=== PATIENT | male | born 1960 | race Caucasian/White ===

== ENCOUNTER 2016-07-17 09:44 | Inpatient (IN) | payer BC ==
[2016-07-17 10:13] LABS: CHLORIDE,CL 102 mEq/L (98-106); SODIUM,NA 141 mEq/L (136-145)
[2016-07-17] MEDS ORDERED: Docusate Sodium 100 MG Cap PO PRN (11:22)
[2016-07-17] MEDS ORDERED: Magnesium Hydroxide 400 MG/5 ML Susp 30 ML Cup PO PRN (11:22)
[2016-07-17] MEDS ORDERED: Sodium Chloride 0.9% 500 ML IV ONE (11:30)
[2016-07-17] MEDS: Sodium Chloride 0.9% 1,000 ML IV SCH ×2 (12:21→16:43)
[2016-07-17] MEDS ORDERED: Iopamidol 755 Mg/ML 100 ML Bottle IVPUSH ONE (13:41)
[2016-07-17] MEDS ORDERED: cefTRIAXone 1 GM Vial IVPUSH SCH (15:00)
[2016-07-17] MEDS ORDERED: Levofloxacin/Dextrose 5%-Water 750 MG in Premix Bag 1 BAG IV SCH ×2 (16:00→17:00)
[2016-07-17] MEDS: metroNIDAZOLE/Normal Saline 500 MG in Premix Bag 1 BAG IV SCH (16:45)
[2016-07-17] MEDS: Acetaminophen 325 MG Tab PO PRN (19:11)
[2016-07-17] MEDS ORDERED: Enoxaparin 40 MG/0.4 ML Syringe SUBCUT SCH (20:00)
[2016-07-18] MEDS: metroNIDAZOLE/Normal Saline 500 MG in Premix Bag 1 BAG IV SCH ×2 (00:03→07:42)
[2016-07-18] MEDS: Acetaminophen 325 MG Tab PO PRN ×2 (03:49→11:42)
[2016-07-18] MEDS: Sodium Chloride 0.9% 1,000 ML IV SCH (03:51)
[2016-07-18] MEDS ORDERED: Lisinopril 10 MG Tab PO SCH (08:00)
[2016-07-18 12:04] VITALS: BP 144/76
--- NOTE | 2016-07-21 07:20 | DISCH ---
FINAL DIAGNOSIS: Cholecystitis. HISTORY OF PRESENT ILLNESS: Max is a 55-year-old male, who presented initially to the clinic yesterday with concerns of cold-like symptoms. He has a little bit of shortness of breath, indigestion, question whether or not he came down with pneumonia. He was having a lot of some abdominal discomfort with it as well. He was just not feeling himself. He states that he did not have any nausea, no vomiting, no diarrhea at that point in time. I felt like he had a lot of sweats as well. He was worked up in the clinic and initially he had a complete laboratory work that did show white blood count of 22,000 with a left shift. D-dimer was elevated at 2.31. Cardiac enzymes were within normal limits. ALT was mildly elevated at 129 with an alkaline phosphatase of 195. CRP was quite elevated at 49.2. CT scan of the chest, abdomen, and pelvis initially to rule out PE, which was negative per radiologist at [place]. I did feel that imaging was suboptimal, however. Abdomen and pelvis did demonstrate inflammation and concerns of cholecystitis. No signs of any stones were noted. Ultrasound of the right upper quadrant was ordered at that point in time. LABORATORY DATA: For initial laboratory work please see HPI. Repeat laboratory work today did show an improvement in white blood count down to 15,500. CRP was down to 35.7, amylase was within normal limits at 17. Urinalysis was concerning about some positive nitrites for a positive UTI. HOSPITAL COURSE: The patient was admitted to Dr. Wright's services under acute care. He was started on IV Levaquin and Flagyl yesterday. Vital signs have been stable. He did present initially with a temperature of 99.6, heart rate was a little bit of tachycardic at 124, blood pressure 125/73, respiratory rate of 20 with an O2 saturation of 97%. He started to run a low-grade fever through the night and up to this morning of 101.0. Blood pressure has been running around 144/76, pulse has been normal at 93 beats per minute, O2 saturation remained at 96% with respiratory rate of 20. The patient has been n.p.o. since midnight. He did have a couple sips of water to take his lisinopril this morning. DISCHARGE MEDICATIONS: To resume his lisinopril, otherwise all medications will be secondary to transfer to [facility]. DISCHARGE INSTRUCTIONS: The patient is to remain n.p.o. He will be discharged to [facility] via private vehicle. I did discuss risks and benefits with Max in regard to the modes of transportation versus transfer and non-transfer. Max declined ambulance transfer at this point in time, does not feel that it is necessary. He understands the risks involved that the symptoms could progressively worsen, become septic, increased discomfort, etc. He elected to go by private vehicle via his . Dr. Dhaliwal was consulted today and did accept the transfer secondary to the patient's cholecystitis. Dr. Dhaliwal is the general surgeon at [facility]. He advised us to send the patient to the emergency room. I did contact the emergency room, did speak with Bob at the emergency room with a complete details in regard to patient's condition. We will discharge him at this point in time via private vehicle. He is again to go directly to [facility] for further evaluation and surgical intervention. WESTLEY/SIVAKUMAR /[id number]
== END 2016-07-18 12:30 ==
LOC: CC.MS 09:44 → CC.FCMC 09:44 → CC.MS 10:58 → UNDOADMOB 10:58 → CC.MS 11:23 → OBSVTOIN 11:23
PROVIDERS: ADMIT Physician Assistant Medical; ATTEND Family Medicine
DX: K81.9 Cholecystitis, unspecified (principal); R06.02 Shortness of breath
CPT/HCPCS: 36415; 71020; 71275; 74177; 76705; 80053; 81001; 82150; 82550; 84484; 85025; 85379; 86140; 87040; 87804; 93005; 94760; A9270-GY; J0696; J1650; J1956; J7030; J7040; Q9967

== ENCOUNTER → 2019-11-18 | Day surgery (SDC) | payer BC ==
[~2019-11-18] MED LIST: Ketamine 200 MG/20 ML MDV IV ONE; Lactated Ringers 1,000 ML IV SCH; Midazolam 1 MG/ML 2 ML SDV IV ONE; Propofol 200 MG/20 ML SDV IV ONE; fentaNYL 100 MCG/2 ML SDV IV ONE
[2019-11-18 09:54] VITALS: BP 122/68; PULSE 50
--- NOTE | 2019-11-18 14:36 | OR ---
DATE OF OPERATION: 11/18/2019 PREOPERATIVE DIAGNOSIS: FOLLOWUP POLYPS. POSTOPERATIVE DIAGNOSIS: FOLLOWUP POLYPS. SURGEON: Jose Manuel Wright MD PROCEDURE: FULL-LENGTH COLONOSCOPY WITH SNARE POLYPECTOMY X2, FORCEPS POLYP REMOVAL X4. ANESTHESIA: MAC. COMPLICATIONS: None. SPECIMEN: 1. Five sessile polyps, see report. 2. Villous adenoma, proximal sigmoid colon, approximately 8 mm in size. FINDINGS: 1. Full-length colonoscopy. 2. [id number] sigmoid diverticulosis. 3. Five sessile polyps from the splenic flexure to rectal vault. 4. Tubulovillous adenoma, proximal sigmoid colon, just under a centimeter in size. RECOMMENDATIONS: Followup colonoscopy in 3 years. INDICATIONS: The patient is overdue for a colonoscopy. He has had a prior scope with polyp removed. He was sent for surveillance exam. DESCRIPTION OF PROCEDURE: The patient was prepped and draped, placed in the left lateral decubitus position. A lubricated Olympus colonoscope was inserted and easily advanced to the cecum. Direct visualization of the ileocecal valve and appendiceal orifice was accomplished. The bowel prep was adequate. There was a lot of liquid stool present, but most areas could be suctioned. Upon withdrawal, the cecum, ascending and transverse colon appeared benign. At the splenic flexure, the patient had 2 small sessile polyps. The first was removed with a snare and suctioned into polyp trap #1. The second was removed with forceps in its entirety. In the distal descending or proximal sigmoid colon, the patient had a tubulovillous lesion just under a centimeter in size, removed with a snare and suctioned into polyp trap #2 without complication. The patient does have scattered diverticulosis throughout most of the sigmoid and rectosigmoid area, mild to moderate in severity. No inflammatory changes were seen. There were no vascular abnormalities or signs of colitis. In the rectosigmoid junction, the patient had a small sessile polyp, approximately 2 to 3 mm, removed with a forceps. He had 2 as well in the rectal vault, also removed with forceps in their entirety without any complication. Retroflexion showed no perianal lesions. Air was then suctioned, the scope removed without complication. GERSON/SIVAKUMAR /[id number]
== END ==
LOC: CC.SDS 07:56
PROVIDERS: ATTEND Family Medicine
DX: D12.5 Benign neoplasm of sigmoid colon (principal); K62.1 Rectal polyp; K57.30 Diverticulosis of large intestine without perforation or abscess without bleeding; I10 Essential (primary) hypertension; E78.5 Hyperlipidemia, unspecified; E66.9 Obesity, unspecified; Z68.43 Body mass index [BMI] 50.0-59.9, adult; Z79.899 Other long term (current) drug therapy; Z87.891 Personal history of nicotine dependence
CPT/HCPCS: 00811; J2250; J2704; J3010; J7120